=== PATIENT | male | born 1980 ===

== ENCOUNTER 2019-01-18 12:39 | Emergency (ER) | payer OTHER ==
--- NOTE | 2019-01-18 12:58 | Emergency Department Report ---
Chief Complaint: Extremity Injury, Upper Stated Complaint: FINGER INJURY Time Seen by Provider: 01/18/19 12:55 - HPI History of Present Illness: pt presents with right pinky injury a 4x6 piece of wood fell from the ceiling avulsion injury possible dislocation no numbness able to move the digit never injured before no PMHx no med on daily basis unsure of last tetanus no allergies MSE screening note: Focused history and physical exam performed. Due to findings the following was ordered:XR right finger, tetanus ED Disposition for MSE Condition: Stable
[2019-01-18] MEDS ORDERED: BOOSTRIX IM ONE (12:59)
--- NOTE | 2019-01-18 13:45 | XRay Report ---
RIGHT FINGERS, 2 VIEWS History: Finger injury. Findings: Complex bony and soft tissue injury to the distal fifth digit is identified. There is a comminuted fracture of the distal tuft of the fifth digit. There is a large soft tissue laceration involving the distal fifth digit as well. No obvious radiopaque foreign body. The remaining bony structures and joint spaces are intact. Impression: Fracture, distal phalanx, fifth digit.
[2019-01-18] MEDS ORDERED: IBUPROFEN PO ONE (15:08)
--- NOTE | 2019-01-18 15:09 | Emergency Department Report ---
Upper Extremity - HPI Chief Complaint: Extremity Injury, Upper Stated Complaint: FINGER INJURY Time Seen by Provider: 01/18/19 12:55 Upper Extremity: Right Little Finger Occurred When: Today Mechanism: Hit with Object Severity: moderate Symptoms: Yes Pain with Movement, Yes Deformity, Yes Limited Range of Movement, No Numbness, No Weakness, No Swelling, No Bruising/Ecchymosis, No Laceration or Abrasion Other History: This is a 38-year-old male presents to the ED complaining of what object falling on him while he was at work today. Patient states pain localized to his right pinky. He denies any bleeding or skin opening on the finger. ED Review of Systems ROS: Stated complaint: FINGER INJURY Other details as noted in HPI Comment: All other systems reviewed and negative ED Past Medical Hx - Past Medical History Previous Medical History?: No - Surgical History Past Surgical History?: No - Social History Smoking Status: Unknown if ever smoked Substance Use Type: None - Medications Home Medications: Home Medications Medication Instructions Recorded Confirmed Last Taken Type Ibuprofen [Motrin 800 MG tab] 800 mg PO TID #30 tablet 01/18/19 Unknown Rx Upper Extremity Exam - Exam General: Vital signs noted. No distress. Alert and acting appropriately. Head and Torso: No HEENT Abnormality, No Neck Tenderness, No Chest/Lungs Ab normality, No Abdominal Tenderness, No Back Tenderness Shoulder Exam: Yes Normal Range of Motion in Shoulder, No Shoulder Tenderness, No Clavicle Tenderness, No Shoulder Deformity, No AC Joint Tenderness Arm Exam: No Arm/Humerus Tenderness, No Arm Deformity Elbow: No Elbow Tenderness, No Normal Range of Motion in Elbow, No Elbow Deformity Forearm: No Forearm Tenderness, No Forearm Deformity, No Pain with Pronation, No Pain with Supination Wrist: Yes Normal ROM in Wrist, No Wrist Tenderness, No Wrist Deformity, No Snuffbox Tenderness, No Pain with Axial Thumb Compression Hand: Yes Normal ROM in Digit(s), No Hand Tenderness, No Hand Deformity, No Digit Tenderness, No Digit(s) Deformity, No Tendon Dysfunction CMS Exam: No Broken Skin, No Normal Distal Pulses, No Normal Capillary Refill, No Normal Distal Sensation ED Course Vital Signs 01/18/19 12:55 Temperature 99.1 F Pulse Rate 81 Respiratory 18 Rate Blood Pressure 159/84 O2 Sat by Pulse 99 Oximetry ED Medical Decision Making - Radiology Data Radiology results: report reviewed, image reviewed RIGHT FINGERS, 2 VIEWS History: Finger injury. Findings: Complex bony and soft tissue injury to the distal fifth digit is identified. There is a comminuted fracture of the distal tuft of the fifth digit. There is a large soft tissue laceration involving the distal fifth digit as well. No obvious radiopaque foreign body. The remaining bony structures and joint spaces are intact. Impression: Fracture, distal phalanx, fifth digit. Transcribed By: TTR Dictated By: MARCO A WALKER JR, MD Electronically Authenticated By: MARCO A WALKER JR, MD Signed Date/Time: 01/18/19 1323 - Medical Decision Making 38-year-old male presents with right pinky finger fracture X-ray shows fracture above. Discussed findings with the patient. Patient was placed in a finger splint. Discussed the patient follow up with orthopedic doctor. Plan is as normal patient is in no acute distress. Discussed with the patient if any worsening symptoms and worsening swelling to return to ED. Patient understands the instructions and states he will follow up with an orthopedic doctor. Critical care attestation.: If time is entered above; I have spent that time in minutes in the direct care of this critically ill patient, excluding procedure time. ED Disposition Clinical Impression: Phalanx, distal fracture of finger Disposition: DC-01 TO HOME OR SELFCARE Is pt being admited?: No Does the pt Need Aspirin: No Condition: Stable Instructions: Finger Fracture (ED), RICE Therapy (ED) Additional Instructions: Make sure to follow up with the primary care physician as discussed. Take all your medications as you've been prescribed. If you have any worsening symptoms or develop new symptoms please return to ED immediately. Prescriptions: Ibuprofen [Motrin 800 MG tab] 800 mg PO TID #30 tablet Referrals: KG YEH MD [Primary Care Provider] - 3-5 Days NAIMA CHERRY MD [Staff Physician] - 3-5 Days Forms: Work/School Release Form(ED) Time of Disposition: 15:09
[2019-01-18] MEDS ORDERED: SILVER NITRATE TP ONE (15:58)
[2019-01-19 19:01] VITALS: BP 159/84
== END 2019-01-18 15:29 | disposition home or self-care (01) ==
LOC: ED 12:39
DX: S62.636A Displaced fracture of distal phalanx of right little finger, initial encounter for closed fracture (principal); W22.8XXA Striking against or struck by other objects, initial encounter; Y93.89 Activity, other specified; Y92.69 Other specified industrial and construction area as the place of occurrence of the external cause; Y99.0 Civilian activity done for income or pay
CPT/HCPCS: 90471; 90715